=== PATIENT | male | born 1975 | race African-American/Black ===

== ENCOUNTER 2016-07-15 06:23 | Inpatient (IN) ==
[2016-07-15 07:25] LABS: Basophils % 0.4 % (0.0-0.8); Eosinophils # 0.2 10*3/uL (0.0-0.87); Eosinophils % 2.7 % (0.00-10.9); Hematocrit 43.1 VOL% (42.0-52.0); Hemoglobin 15.1 GM/DL (14.0-18.0); Immature Granulocytes % 0.2 %; Immature Granulocytes Absolute 0.02 #; Lymphocytes # 0.5 10*3/uL (1.4-4.0); Lymphocytes % 6.6 % (21.2-54.2); Mean Corpuscular Hemoglobin 33 PG (27-34); Mean Corpuscular Volume 92.7 FL (87-102); Mean Platelet Volume 8.7 FL (9.6-12.0); Monocytes # 0.8 10*3/uL (0.11-0.8); Monocytes % 10.3 % (1.7-12.7); Neutrophils # 6.4 10*3/uL (1.4-7.4); Neutrophils % 79.8 % (38.7-73.9); Platelet Count 271 T/CUMM (130-400); Red Blood Count 4.65 MC/CUMM (3.8-5.5); Red Cell Distribution Width 12.4 % (9.3-17.3); White Blood Count 8.1 T/CUMM (4-12)
--- NOTE | 2016-07-15 07:43 | General Surg History&Physical ---
Assessment and Plan - Time spent with patient Time spent with patient: Greater than 30 minutes (1) Abscess of right buttock Status: Acute Assessment and plan: Impression: 1. Marked swelling and pain right buttocks probably secondary to underlying abscess Plan: 1. IV antibiotics. 2. Surgical debridement drainage Current Visit: Yes History of Present Illness Chief complaint: painful swelling right buttocks History of present illness: Mr. Shrestha is a 40 year old male -S[place]i male with a history of some recurring abscesses both in the gluteal area and other areas. He denies being a diabetic and he is standing not overweight. He presents with about a 2 week history of swelling in the right gluteal area. He just treated it topically as needed done some other areas in the past but he got progressively worse with marked swelling the right gluteal area over the last several days. Basic got worse about Friday to the point that he came in today, he couldn't stand the pain anymore. He has dramatic swelling the right gluteal area came to we can barely even touching and will need a taken to surgery under anesthesia and get this area drained. Home Medications Medication Instructions Recorded Confirmed Type No Known Home Medications [No 07/15/16 07/15/16 History Known Home Medications] Allergies Allergy/AdvReac Type Severity Reaction Status Date / Time No Known Allergies Allergy Unverified 07/15/16 06:45 Medical,Surgical,& Family Hx - Surgical History Orthopedic Surgeries: Surgical HX of;: Orthopedic Surgery (L knee) - Social History Smoking Status: Never smoker Frequency of Alcohol Use: Occasionally Type of Drug Use: None Marital Status: Single Lives With:: Parent Functional capacity: independent ambulation Exam - Constitutional Vitals: Period Temp Pulse Resp BP Sys/Khan Pulse Ox Last 24 Hr 99.0 F-99.0 F 85-104 19-20 110-145/67-95 97-99 General appearance: mild distress - Head Head exam: Present: normal inspection - ENT ENT exam: Present: normal exam - Neck Neck exam: Present: normal inspection - Respiratory Respiratory exam: Present: clear to auscultation bilaterally, rales - Cardiovascular Cardiovascular exam: Present: RRR - GI/Abdominal GI/Abdominal exam: Present: normal bowel sounds, hypoactive bowel sounds, soft - Anus/Rectum Anus/Rectum: other (marked swelling of the right gluteal area with marked tenderness.) - Extremities Exam Extremities exam: Present: normal inspection - Back Exam Back exam: Present: normal inspection - Neurological Exam Neurological exam: Present: alert, oriented X3, CN II-XII intact - Skin Skin exam: Present: normal color, warm, dry 12 point system: reviewed and no additional remarkable complaints except as stated Results - Labs CBC & BMP: 07/15/16 07:14 Lab Results: I have reviewed the past 24 hour labs
[2016-07-15] MEDS ORDERED: ACETAMINOPHEN 325 MG TABLET PO PRN (07:46)
[2016-07-15] MEDS ORDERED: ONDANSETRON 4 MG/2 ML VIAL IV PRN ×2 (07:46→14:38)
[2016-07-15] MEDS ORDERED: ALUMINUM/MAGNES/SIMETH MAX STR 30 ML UDCUP PO PRN (07:46)
[2016-07-15 07:48] LABS: Band Neutrophils 7 % (0-10); Eosinophils 1 % (0-10); Lymphocytes 8 % (20-55); Segmented Neutrophils 77 % (50-85); Total Cells Counted 100
[2016-07-15 07:49] LABS: Platelet Estimate Adequate
[2016-07-15] MEDS ORDERED: ceFAZolin 2,000 MG in PREMIX 1 EACH IV ONE (07:51)
--- NOTE | 2016-07-15 07:51 | Emergency Department Note ---
Dc Hayden Meredith, am scribing for, and in the presence of, Amilcar Fernandes MD 06:50. Dom Hayden Phillip K, MD, personally performed the services described in this documentation, ascribed by Ning Irwin in my presence, and it is both accurate and complete 751 . Arrival - Arrival Chief Complaint: Abscess Stated Complaint: has a boil on right buttcheck ED Nursing Triage Note: pt presented to triage ambulatory with c/o abscess to R buttocks x 1 week. pt denies drainage and fever. redness and edema noted to R buttocks. pain unrelieved with OTC meds and oxycontin. Mode of Arrival: Ambulatory Limitations: No Limitations Source: Patient, Old Records Reviewed, RN Notes Reviewed - History of Present Illness HPI Narrative: Pt is a 40 y/o black male reporting to the ED with c/o abscess to the right buttock for the past week. He denies any drainage. His temperature at the time of triage was 99.0. Pt has taken OTC pain medication and Oxycotin with no relief. Onset (ago): week(s) Consistency: constant Allergies/Adverse Reactions: Allergies Allergy/AdvReac Type Severity Reaction Status Date / Time No Known Allergies Allergy Unverified 07/15/16 06:45 Home Medications: Home Medications Medication Instructions Recorded Confirmed Type No Known Home Medications [No 07/15/16 07/15/16 History Known Home Medications] Review of System - Review of System 12 point system: reviewed and no additional remarkable complaints except as stated - Review of System Constitutional: Present: as per HPI, fever Skin: Present: as per HPI, other (abscess to the right buttock; pt denies any drainage) Medical,Surgical,& Family Hx - Medical History Neurology: No history of: TIA - Surgical History Cardiac Surgeries: Patient Denies: Carotid Endarterectomy Orthopedic Surgeries: Surgical HX of;: Orthopedic Surgery (L knee) - Family History Family History: Denies;: Additional Family History - Social History Smoking Status: Never smoker Frequency of Alcohol Use: Occasionally Type of Drug Use: None Exam Vital Signs: Vital Signs Temperature 99.0 F 07/15/16 07:23 Pulse Rate 104 H 07/15/16 07:23 Respiratory Rate 20 07/15/16 07:23 Blood Pressure 145/95 07/15/16 07:23 O2 Sat by Pulse Oximetry 99 07/15/16 07:02 - General General appearance: alert, in no apparent distress - Head Head exam: Present: atraumatic, normocephalic - Eye Eye exam: Present: normal appearance, PERRL, EOMI - ENT ENT exam: Present: mucous membranes moist, normal external ear exam - Neck Neck exam: Present: full ROM, trachea midline. Absent: tenderness, meningismus , lymphadenopathy, thyromegaly - Chest Chest inspection: Present: symmetric chest wall rise. Absent: tenderness, rash - Respiratory Respiratory exam: Present: normal lung sounds bilaterally. Absent: respiratory distress - Cardiovascular Cardiovascular exam: Present: regular rate, normal rhythm, normal heart sounds. Absent: murmur, rubs, gallop - Abdominal Exam Abdominal exam: Present: soft, normal bowel sounds. Absent: distention, tenderness - Extremities Exam Extremities exam: Present: full ROM, normal capillary refill. Absent: tenderness, pedal edema, calf tenderness - Back Exam Back exam: Present: full ROM. Absent: tenderness - Neurological Exam Neurological exam: Present: alert, oriented X3, CN II-XII intact. Absent: motor sensory deficit - Psychiatric Psychiatric exam: Present: normal affect, normal mood - Skin Skin exam: Present: warm, dry, other (4cm by 5 cm abscess to the right buttock) Course Course Narrative: Patient discussed with Dr. Lyle who will evaluate in the ED. Results - Labs CBC & BMP: 07/15/16 07:14 Lab Results: I have reviewed the patients labs Disposition Clinical Impression: Abscess, gluteal, right Case discussed with: patient Disposition: Still a Patient Condition: Stable Additional Instructions: Admit to Dr. Lyle for surgery
[2016-07-15 08:00] LABS: Calcium 9.4 MG/DL (8.5-10.1); Osmolality,Calculated 281.4 MOS/KG (273-304); Potassium 3.9 MMOL/L (3.5-5.1)
--- NOTE | 2016-07-15 08:17 | EKG Report ---
Stationary ECG Study [facility] ER Test Date: 07/15/2016 8:16:17 AM Pat Name: MAXIMILIANO MAYERS Department: Room: Gender: M Senior Stack Engineer: : 1975 Requested by: Vin Lyle Order Number: [id number] Ozzie MD: TITI GRANADOS Intervals [place] Rate: 73 P: 51 VA: 108 QRS: 63 QRSD: 90 T: 77 QT: 376 QTc: 402 Interpretive Statements SINUS RHYTHM WITH SHORT VA INTERVAL Electronically Signed On 07-15-16 22:36:37 CROWNING HAMMER OPERATOR by TIIT GRANADOS [email or web address]
--- NOTE | 2016-07-15 09:21 | XRay Report ---
XR chest 2V Indication: Preop for abscess Comparison: None Technique: Frontal and lateral views of the chest Findings: Heart size appears within normal limits. No focal consolidation, pleural effusion, or pneumothorax. Osseous and surrounding soft tissue structures demonstrate no acute abnormality. IMPRESSION: No acute cardiopulmonary process demonstrated. PROCEDURE INTERPRETED AT [facility] DEPARTMENT OF RADIOLOGY Final Report Signed by: Dr Reza Rajan
[2016-07-15] MEDS: DOCUSATE SODIUM 100 MG CAPSULE PO SCH ×2 (09:30→20:38)
[2016-07-15] MEDS: PANTOPRAZOLE 40 MG TABLET PO SCH (09:30)
[2016-07-15] MEDS: DEXTROSE 5% LACTATED RINGERS 1,000 ML IV SCH ×2 (09:30→15:39)
[2016-07-15] MEDS: metroNIDAZOLE INJ 500 MG in PREMIX 1 EACH IV SCH ×2 (09:35→15:39)
[2016-07-15] MEDS: KETOROLAC 15 MG/1 ML VIAL IV SCH ×3 (09:38→22:00)
[2016-07-15] MEDS ORDERED: BUPIVACAINE 0.25% 50 ML VIAL ONE (12:24)
[2016-07-15] MEDS: PIPERACILLIN/TAZOBACTAM 3,375 MG in SODIUM CHLORIDE 0.9% 100 ML IV SCH ×2 (12:33→17:32)
[2016-07-15] MEDS ORDERED: LIDOCAINE 2% 5 ML VIAL ONE (13:10)
[2016-07-15] MEDS ORDERED: PROPOFOL 200 MG/20 ML VIAL IV ONE (13:10)
--- NOTE | 2016-07-15 14:16 | Operative Note ---
Pre-op diagnosis: abscess right buttocks Post-op diagnosis: same Procedure: Operative note: Preoperative diagnosis: Large abscess right buttocks Postoperative diagnosis same Procedure: Excisional debridement skin subcutaneous tissue and drainage of abscess. Surgeon Dr. Lyle Anesthesia Gen. Brief history: 40-year-old [place]ian male with large abscess of right buttocks inguinal for 2 weeks now is extremely large very tender at this point time so we admitted him for IV antibiotics and cultures. We'll bring him to surgery at this point for drainage. Procedure: With patient in the dorsal lithotomy position approached this area of the large abscess after Timeout and antibiotics and being completed. The mass measures 15 cm x 10 cm in size at this time. It is fluctuant and firm on this right buttocks. At that point I took a knife and made incision into the buttocks entering a large cavity large amount of purulent material which we then cultured aerobically and anaerobically. I then opened up this wound widely superiorly and inferiorly and excise several skin edges as well as good bit of necrotic fatty tissue in the base of this wound once I had opened this widely and cleaned it up and I was able to use elect cauterization controlled bleeding in the base of the wound and washed and irrigated with saline solution. When post-debridement wound is now 12 x 5 x 2 cm in size. Did not see any extension into the pro-rectal area at this point time. After I cleaned up this wound is clean as I could possibly get it because of the concern about some bleeding went ahead and place Surgicel in the base along with Aquasol AG and fluffs on top at this time. We'll start Dakin's irrigation's and dressings Karissa once we are sure there is no further bleeding. Patient was then further dressed and taken to recovery room. Estimated blood loss 50 mL Sponge count correct 2 Drains none Complications none Condition stable satisfactory Anesthesia: ROSAURA Surgeon / Physician: Vin Lyle Estimated blood loss: other (50 mL) Specimens: other (tissue and swabs for culture) Condition: stable Disposition: floor Results - Labs CBC & BMP: 07/15/16 07:14 07/15/16 07:14 Discharge Plan - Discharge Medications No Action No Known Home Medications [No Known Home Medications] - Follow Up or Referral - Forms/Instructions
[2016-07-15] MEDS ORDERED: MIDAZOLAM 2 MG/2 ML VIAL ONE (14:29)
[2016-07-15] MEDS ORDERED: fentaNYL 100 MCG/2 ML VIAL ONE (14:29)
[2016-07-15] MEDS ORDERED: HYDROmorphone 2 MG/1 ML VIAL IV PRN (14:38)
--- NOTE | 2016-07-15 14:42 | Anesthesia ---
Anesthesia Post OP - Post Ansesthetic Evaluation Patient seen in post op: Yes Resp: within normal limits CV: within normal limits Mental: within normal limits Temp: within normal limits [id number]: within normal limits Nausea and Vomiting: within normal limits Pain: within normal limits
[2016-07-15] MEDS ORDERED: LACTATED RINGERS 1,000 ML IV SCH (15:00)
[2016-07-15] MEDS: HYDROmorphone 2 MG/1 ML VIAL IV PRN (20:58)
[2016-07-15] MEDS: ceFAZolin 2,000 MG in PREMIX 1 EACH IV SCH (21:19)
[2016-07-16] MEDS: metroNIDAZOLE INJ 500 MG in PREMIX 1 EACH IV SCH ×4 (00:02→23:35)
[2016-07-16] MEDS: DEXTROSE 5% LACTATED RINGERS 1,000 ML IV SCH ×2 (00:08→03:52)
[2016-07-16] MEDS: PIPERACILLIN/TAZOBACTAM 3,375 MG in SODIUM CHLORIDE 0.9% 100 ML IV SCH ×3 (01:21→17:07)
[2016-07-16] MEDS: KETOROLAC 15 MG/1 ML VIAL IV SCH ×4 (03:49→23:31)
[2016-07-16] MEDS: ceFAZolin 2,000 MG in PREMIX 1 EACH IV SCH (06:26)
[2016-07-16] MEDS ORDERED: ceFAZolin 2,000 MG in PREMIX 1 EACH IV ONE (06:30)
[2016-07-16 07:05] LABS: Immature Granulocytes Absolute 0.03 #; Mean Corpuscular HGB Conc 32.9 GM/DL (32-36); Red Cell Distribution Width 12.5 % (9.3-17.3)
[2016-07-16 07:35] LABS: Calcium 8.2 MG/DL (8.5-10.1); Osmolality,Calculated 280.3 MOS/KG (273-304); Potassium 3.8 MMOL/L (3.5-5.1)
[2016-07-16 07:56] LABS: Basophils % 0.4 % (0.0-0.8); Eosinophils # 0.1 10*3/uL (0.0-0.87); Eosinophils % 2.7 % (0.00-10.9); Hematocrit 31.9 VOL% (42.0-52.0); Immature Granulocytes % 0.6 %; Lymphocytes % 18.3 % (21.2-54.2); Mean Corpuscular Hemoglobin 32 PG (27-34); Mean Corpuscular Volume 96.1 FL (87-102); Mean Platelet Volume 8.4 FL (9.6-12.0); Monocytes # 0.6 10*3/uL (0.11-0.8); Monocytes % 11.5 % (1.7-12.7); Neutrophils # 3.5 10*3/uL (1.4-7.4); Neutrophils % 66.5 % (38.7-73.9)
[2016-07-16 07:57] LABS: Red Blood Count 3.32 MC/CUMM (3.8-5.5); White Blood Count 5.2 T/CUMM (4-12)
[2016-07-16 07:58] LABS: Hemoglobin 10.5 GM/DL (14.0-18.0); Platelet Count 197 T/CUMM (130-400)
[2016-07-16] MEDS: PANTOPRAZOLE 40 MG TABLET PO SCH (09:35)
[2016-07-16] MEDS: DOCUSATE SODIUM 100 MG CAPSULE PO SCH ×2 (09:35→23:31)
[2016-07-16] MEDS: SODIUM HYPOCHLORITE 0.25% IRRIG 473 ML BOTTLE TOP SCH ×2 (11:15→23:38)
--- NOTE | 2016-07-16 17:37 | General Surgery Progress Note ---
Assessment and Plan - Time spent with patient Time spent with patient: Less than 30 minutes (1) Abscess of right buttock Status: Acute Assessment and plan: Impression: 1. Marked swelling and pain right buttocks probably secondary to underlying abscess Plan: 1. IV antibiotics. 2. Surgical debridement drainage 07/16/2016. Patient is status post drainage of this abscess of the right gluteal area. We' ll now start wound care to it and trying to teach the patient family how to care for. We're waiting for the final on the culture reports to decide what antibiotics to send him home on. Once he is able to manage the wounds and we' ll get clear cultures will let him go home and follow him up in the office. Current Visit: Yes Subjective Patient reports: Present: feels better, pain is less, tolerating a regular diet , no bowel movement, afebrile Exam - Constitutional Vitals: Period Temp Pulse Resp BP Sys/Khan Pulse Ox Last 24 Hr 98.2 F-99.0 F 73-101 12-20 100-121/63-76 91-98 General appearance: mild distress - Head Head exam: Present: normal inspection - ENT ENT exam: Present: normal exam - Neck Neck exam: Present: normal inspection - Respiratory Respiratory exam: Present: clear to auscultation bilaterally, rales - Cardiovascular Cardiovascular exam: Present: RRR - GI/Abdominal GI/Abdominal exam: Present: hypoactive bowel sounds, soft - Anus/Rectum Anus/Rectum: other (wound is dressed and will start wound care today) - Extremities Exam Extremities exam: Present: normal inspection - Back Exam Back exam: Present: normal inspection - Neurological Exam Neurological exam: Present: alert, oriented X3, CN II-XII intact - Skin Skin exam: Present: normal color, warm, dry Results - Labs CBC & BMP: 07/16/16 07:48 07/16/16 06:37 Lab Results: I have reviewed the past 24 hour labs Quality Measures - VTE Contraindication to Pharmacological VTE Prophylaxis: High Risk of Bleeding
[2016-07-16] MEDS: HYDROmorphone 2 MG/1 ML VIAL IV PRN (23:43)
[2016-07-17] MEDS: PIPERACILLIN/TAZOBACTAM 3,375 MG in SODIUM CHLORIDE 0.9% 100 ML IV SCH ×3 (00:52→18:19)
[2016-07-17] MEDS: DEXTROSE 5% LACTATED RINGERS 1,000 ML IV SCH ×4 (00:54→16:43)
[2016-07-17] MEDS: KETOROLAC 15 MG/1 ML VIAL IV SCH ×4 (04:15→21:14)
[2016-07-17] MEDS: metroNIDAZOLE INJ 500 MG in PREMIX 1 EACH IV SCH ×2 (10:07→16:15)
[2016-07-17] MEDS: PANTOPRAZOLE 40 MG TABLET PO SCH (10:08)
[2016-07-17] MEDS: DOCUSATE SODIUM 100 MG CAPSULE PO SCH ×2 (10:08→21:12)
--- NOTE | 2016-07-17 10:08 | General Surgery Progress Note ---
Assessment and Plan - Time spent with patient Time spent with patient: Less than 30 minutes (1) Abscess, gluteal, right Status: Acute Assessment and plan: 07/17/16 Stable post op I&D of perineal/gluteal abscess. Final culture pending. He's tolerating dressing changes and family is attentive/capable of managing these. We will look at discharge tomorrow if final culture can be addressed. I' d like to see him having bowel movements prior to discharge, since that will add to his discomfort and management difficulty. Current Visit: Yes Subjective Patient reports: Present: feels better, pain is less, other (Mild headache today ; Tolerating dressing changes well; pt says his fiance & grandmother have been managing his dressings and he's tolerating that well.). Absent: bowel movement , nausea, vomiting, shortness of breath Exam - Constitutional Vitals: Period Temp Pulse Resp BP Sys/Khan Pulse Ox Last 24 Hr 98.2 F-99.0 F 74-79 12-18 104-125/54-74 96-99 General appearance: no acute distress - Respiratory Respiratory exam: Present: clear to auscultation bilaterally - Cardiovascular Cardiovascular exam: Present: RRR - GI/Abdominal GI/Abdominal exam: Present: hypoactive bowel sounds, soft - Anus/Rectum Anus/Rectum: other (Perineal dressing in place; no bleeding through. ) Results - Labs CBC & BMP: 07/16/16 07:48 07/16/16 06:37 Lab Results: I have reviewed the past 24 hour labs Quality Measures - VTE Contraindication to Pharmacological VTE Prophylaxis: High Risk of Bleeding
[2016-07-17] MEDS: SODIUM HYPOCHLORITE 0.25% IRRIG 473 ML BOTTLE TOP SCH ×2 (16:30→21:15)
[2016-07-18] MEDS: metroNIDAZOLE INJ 500 MG in PREMIX 1 EACH IV SCH ×2 (00:32→09:17)
[2016-07-18] MEDS: PIPERACILLIN/TAZOBACTAM 3,375 MG in SODIUM CHLORIDE 0.9% 100 ML IV SCH ×2 (01:55→10:26)
[2016-07-18] MEDS: DEXTROSE 5% LACTATED RINGERS 1,000 ML IV SCH (02:07)
[2016-07-18] MEDS: KETOROLAC 15 MG/1 ML VIAL IV SCH ×2 (04:52→09:32)
[2016-07-18] MEDS: DOCUSATE SODIUM 100 MG CAPSULE PO SCH (09:18)
[2016-07-18] MEDS: PANTOPRAZOLE 40 MG TABLET PO SCH (09:18)
[2016-07-18] MEDS: SODIUM HYPOCHLORITE 0.25% IRRIG 473 ML BOTTLE TOP SCH (09:22)
--- NOTE | 2016-07-18 10:21 | Physician Query Form ---
CLICK EDIT DOCUMENT TO SELECT QUERY ANSWER --> OK --> SIGN Holly Sharma RN Clinical Editor Managing Newspaper W) [phone] (f) [phone] [email or web address] PROVIDERS: Make your selection(s) from the choices in EACH section by typing an "x" and enter comments in the comment section. Please use your independent medical judgment in providing your response. This request does not imply that any particular answer is desired or expected. CLINICAL INDICATORS: (Providers should not edit this section) Height: 5ft 8in Weight: 127lbs Manufacturing Applications Engineer BMI: 18.9 Nutritional supplements: Ensure Enlive with all meals Fund Manager notes: underweight Based on the above, which following choice most accurately represents the patient's nutritional status? ( ) Malnutrition ( ) mild ( ) moderate ( ) severe ( x) Protein calorie malnutrition ( x) mild ( ) moderate ( ) severe ( ) Emaciation due to malnutrition ( ) Nutritional marasmus ( ) Cachexia (x ) Underweight ( ) No nutritional deficiency ( ) Other, please specify: ( ) Clinically unable to determine Mild Malnutrition (BMI < 18.5, % Normal Body Weight 85-95%) Moderate Malnutrition (BMI < 17, % Normal Body Weight 75-85%) Severe Malnutrition (BMI < 16, % Normal Body Weight < 75%) Source: Ana COMMENTS: Use of terms such as suspected, likely, or probable (associated with a specific diagnosis that is being evaluated, monitored, or treated as if it exists) are acceptable and can be restated in the discharge summary if not ruled out. MTDD
[2016-07-18 12:00] VITALS: BP 105/64
--- NOTE | 2016-07-18 12:31 | Discharge Summary ---
Hospital Course - Hospital Course Hospital Course: 07/18/16 Discharge Summary Diagnosis: Abscess of right buttocks and gluteal fold Procedure: I&D with wide excisional debridement of right buttocks and gluteal region Brief summary-This 40 year old male patient presented to the ER on the day of admission with a 1 week history of a 'boil on his butt,' with swelling and pain of the right buttock. He had been using moist heat and OTC pain relievers for this, with no relief. The area became too uncomfortable to tolerate, and he presented to the ER. He had noted previous abscesses in other areas, and at least one occasion, he had an buttocks abscess that spontaneously drained. He was admitted, IV antibiotics begun, and on 07/15/16 he was taken to the OR, where a large fluctuant mass of the right buttock was opened and drained. The area undermined about 10cm toward the gluteal fold, and there was a good deal of fatty subcutaneous tissue involved, which was excisionally debrided at the time of surgery. The tissue was cultured and wound care begun. Postoperatively, he has tolerated his wound care well, his family has participated in his care, and his diet has advanced to regular, with normal bowel movements as of yesterday. His pain is managed now by PO meds. The wound bed is pink and induration is resolving. There is no further purulence, no erythema, and he is much more comfortable. Final cultures have showed E. coli and S. lugdunensis, both with good PO antibiotic coverage options. With him feeling better and managing his wound care with the assistance of the family, we will plan to discharge home for continuation of antibiotics for another week. We'll have them maintain BID wound care, and return in 1-2 weeks to the office for recheck. They were given instructions for possible complications and will call if there are questions or issues. We'll just plan to discharge home on Bactrim DS, 1 tablet po BID, and Colace, 100mg po at HS. We will give him [place], 7.5/ 325mg; #20/no refills. - Time spent with patient Time with patient DS: Greater than 30 minutes Diagnosis - Discharge Diagnosis (1) Abscess, gluteal, right Status: Acute Specialty Discharge - Follow Up or Referrals Follow up with: Vin Lyle MD [Physician] - 2 Weeks (See Dr Lyle or Trudy in 2 weeks) Discharge Plan - Discharge Data Disposition: Disch To Home/Self Care Condition at Discharge: Stable Discharge Diet: advance to your usual diet Activity: resume usual activities as tolerated Hygiene: may shower Weight Bearing at Discharge: full weight bearing Driving: not for (1 week) Contact your physician if you experience:: fever over 101, Difficulty voiding, Redness or swelling, Nausea/Vomiting, Shortness of breath, Bleeding, pain uncontrolled by pain medications Wound / Dressing Care Instructions: Copy/continue present wound care instructions - Discharge Medications New RX: Docusate Sodium Cap [Colace Cap] 100 mg PO BEDTIME #30 capsule RX: Sodium Hypochlorite 0.25% Irr [Dakins 1/2 Strength 0.25% Soln] 20 applic TOP BID #1 irrigation HYDROcodone/ACETAMIN 7.5-325 [[place] 7.5-325] 1 tablet PO Q6H #20 tablet Sulfameth/Trimeth 800-160 Tab [Bactrim DS Tab] 1 tablet PO BID #14 tablet - Follow Up or Referral - Forms/Instructions Additional Discharge Instructions: Work excuses for pt and fiance, if desired, for hospital stay and office visits Exam - Constitutional Vitals: Period Temp Pulse Resp BP Sys/Khan Pulse Ox Last 24 Hr 98.2 F-98.5 F 60-78 17-19 104-126/62-64 98-100 General appearance: no acute distress, under weight - Cardiovascular Cardiovascular exam: Present: regular rate and rhythm - GI/Abdominal GI/Abdominal exam: Present: normal bowel sounds, soft. Absent: tenderness - Back Exam Back exam: Present: other (Buttocks/gluteal region is clean without erythema or purulent drainage; there is mild resolving induration associated with the surgical incision but no unusual tenderness, no fluctuance or mass. ) - Neurological Exam Neurological exam: Present: alert, oriented X3 - Psychiatric Psychiatric exam: Present: normal affect, normal mood Discharge Results Procedures and tests throughout hospitalization: Pending Orders 07/15/16 13:38 Abscess Culture Stat Anaerobic Culture Stat Labs on day of discharge: Preliminary micro results at discharge 07/15/16 13:38 Anaerobic Culture - Preliminary Buttock - Right DS: Provider Date of admission: 07/15/16 07:46 Primary care physician: . No PCP Attending physician on admission: Vin Lyle MD Consults: 07/15/16 07:52 Consult to Anesthesiology [CONS] Routine Consulting Provider: Reason for Anesthesiology: Pre-op Clearance Consult Comment: needs genral 07/15/16 09:10 Consult to Pharmacy [CONS] Routine Reason for Pharmacy Consult: Adjust Meds Renal Funct 07/15/16 14:05 Consult to Wound Care - [place] [CONS] Routine Reason for Wound Care: Wound Care Management 07/15/16 14:09 Consult to Case Mgmt/Social Srvs [CONS] Routine Reason for Case Mgmt/Social Srvs: Discharge Planning Consult Comment: see if family wants Home Health Discharging clinician: Trudy Gu CNP, R
== END 2016-07-18 15:10 | disposition home or self-care (01) | DRG 571 ==
LOC: N.ED 06:23 → N.EDINP 07:46 → N.3E 08:37
PROVIDERS: ADMIT Specialist; ATTEND Specialist

== ENCOUNTER 2019-08-22 09:31 | Observation (INO) ==
[2019-08-22] MEDS ORDERED: KETOROLAC 30 MG/1 ML VIAL IV STA (10:11)
[2019-08-22] MEDS ORDERED: VANCOMYCIN INJ 1,000 MG in SODIUM CHLORIDE 0.9% 250 ML IV STA (10:12)
[2019-08-22] MEDS ORDERED: VANCOMYCIN 1,000 MG VIAL ONE ×2 (10:44→13:45)
[2019-08-22 10:50] LABS: Basophils % 0.4 % (0.0-0.8); Eosinophils # 0.1 10*3/uL (0.0-0.87); Eosinophils % 0.7 % (0.00-10.9); Hematocrit 44.9 VOL% (42.0-52.0); Hemoglobin 15.4 GM/DL (14.0-18.0); Immature Granulocytes % 0.5 %; Immature Granulocytes Absolute 0.04 #; Lymphocytes # 0.7 10*3/uL (1.4-4.0); Lymphocytes % 8.6 % (21.2-54.2); Mean Corpuscular HGB Conc 34.3 GM/DL (32-36); Mean Corpuscular Volume 97.4 FL (87-102); Mean Platelet Volume 8.5 FL (9.6-12.0); Monocytes % 7.8 % (1.7-12.7); Platelet Count 184 T/CUMM (130-400); Red Blood Count 4.61 MC/CUMM (3.8-5.5); Red Cell Distribution Width 12.1 % (9.3-17.3); White Blood Count 8.5 T/CUMM (4-12)
[2019-08-22 11:02] LABS: INR 0.9; PT Patient Result 9.8 SECS (9.6-12.2); Partial Thromboplastin Time 26.1 SECS (20.8-36.0)
[2019-08-22 11:16] LABS: Albumin 3.8 G/DL (3.4-5.0); Bilirubin,Total 0.7 MG/DL (0.2-1.0); Calcium 8.9 MG/DL (8.5-10.1); Total Protein 7.6 G/DL (6.4-8.3)
[2019-08-22] MEDS ORDERED: DOCUSATE SODIUM 100 MG CAPSULE PO PRN (14:03)
[2019-08-22] MEDS ORDERED: ONDANSETRON 4 MG/2 ML VIAL IV PRN (14:03)
[2019-08-22] MEDS ORDERED: MORPHINE 4 MG/1 ML VIAL IV PRN (14:03)
[2019-08-22] MEDS ORDERED: LACTULOSE 20 GM/30 ML UDCUP PO PRN (14:03)
[2019-08-22] MEDS ORDERED: fentaNYL 100 MCG/2 ML VIAL ONE (14:35)
[2019-08-22] MEDS ORDERED: SEVOFLURANE 1 UNIT/15 MINUTE INH ONE (14:35)
[2019-08-22] MEDS ORDERED: propofoL 200 MG/20 ML VIAL IV ONE (14:35)
[2019-08-22] MEDS ORDERED: LIDOCAINE 2% 5 ML VIAL ONE (14:35)
[2019-08-22] MEDS ORDERED: LACTATED RINGERS 1,000 ML IV ONE (14:35)
[2019-08-22] MEDS ORDERED: DEXAMETHASONE 4 MG/1 ML VIAL ONE (14:35)
[2019-08-22] MEDS ORDERED: MIDAZOLAM 2 MG/2 ML VIAL ONE (14:35)
[2019-08-22] MEDS ORDERED: KETOROLAC 30 MG/1 ML VIAL ONE (14:35)
[2019-08-22] MEDS ORDERED: ONDANSETRON 4 MG/2 ML VIAL ONE (14:35)
[2019-08-22] MEDS: SODIUM CHLORIDE 0.9% 1,000 ML IV SCH (15:19)
[2019-08-22] MEDS: VANCOMYCIN INJ 1,000 MG in SODIUM CHLORIDE 0.9% 250 ML IV SCH (21:10)
[2019-08-23] MEDS: SODIUM CHLORIDE 0.9% 1,000 ML IV SCH ×3 (01:39→18:12)
[2019-08-23 05:58] LABS: Basophils % 0.2 % (0.0-0.8); Eosinophils % 0.1 % (0.00-10.9); Hematocrit 37.6 VOL% (42.0-52.0); Hemoglobin 12.5 GM/DL (14.0-18.0); Immature Granulocytes % 0.5 %; Immature Granulocytes Absolute 0.05 #; Lymphocytes # 0.6 10*3/uL (1.4-4.0); Lymphocytes % 6.2 % (21.2-54.2); Mean Corpuscular HGB Conc 33.2 GM/DL (32-36); Monocytes % 7.7 % (1.7-12.7); Neutrophils % 85.3 % (38.7-73.9); Platelet Count 196 T/CUMM (130-400); Red Blood Count 3.76 MC/CUMM (3.8-5.5); Red Cell Distribution Width 11.9 % (9.3-17.3)
[2019-08-23 06:25] LABS: Albumin 2.9 G/DL (3.4-5.0); Bilirubin,Total 0.6 MG/DL (0.2-1.0); Calcium 8.7 MG/DL (8.5-10.1); Osmolality,Calculated 271.8 MOS/KG (273-304); Risk Ratio 1.94; Thyroid Stimulating Hormone 0.258 uIU/ml (0.358-3.74); Total Protein 6.5 G/DL (6.4-8.3); VLDL CHOLESTEROL 14.4 MG/DL
[2019-08-23] MEDS ORDERED: PANTOPRAZOLE 40 MG TABLET PO SCH (09:00)
[2019-08-23] MEDS: VANCOMYCIN INJ 1,000 MG in SODIUM CHLORIDE 0.9% 250 ML IV SCH (09:25)
[2019-08-23] MEDS: cefTRIAXone 1,000 MG in SYRINGE 1 EACH IV SCH (12:33)
[2019-08-24] MEDS: SODIUM CHLORIDE 0.9% 1,000 ML IV SCH ×2 (02:45→17:44)
[2019-08-24 06:01] LABS: Basophils % 0.4 % (0.0-0.8); Eosinophils % 0.8 % (0.00-10.9); Hematocrit 37.6 VOL% (42.0-52.0); Hemoglobin 12.3 GM/DL (14.0-18.0); Immature Granulocytes % 0.4 %; Immature Granulocytes Absolute 0.02 #; Lymphocytes # 1.4 10*3/uL (1.4-4.0); Lymphocytes % 28.6 % (21.2-54.2); Mean Corpuscular HGB Conc 32.7 GM/DL (32-36); Mean Corpuscular Volume 101.6 FL (87-102); Mean Platelet Volume 9.3 FL (9.6-12.0); Monocytes % 6.6 % (1.7-12.7); Neutrophils % 63.2 % (38.7-73.9); Platelet Count 178 T/CUMM (130-400); Red Cell Distribution Width 12.2 % (9.3-17.3); White Blood Count 4.9 T/CUMM (4-12)
[2019-08-24 06:19] LABS: Albumin 2.7 G/DL (3.4-5.0); Bilirubin,Total 0.5 MG/DL (0.2-1.0); Calcium 8.6 MG/DL (8.5-10.1); Osmolality,Calculated 272.7 MOS/KG (273-304); Total Protein 5.9 G/DL (6.4-8.3)
[2019-08-24] MEDS: cefTRIAXone 1,000 MG in SYRINGE 1 EACH IV SCH (08:37)
[2019-08-24 15:31] VITALS: BP 136/89
== END 2019-08-24 17:43 | disposition home or self-care (01) ==
LOC: N.EDINP 09:31 → N.ED 09:31 → N.EDINP 13:50 → SUATTDRO 14:03 → N.2E 15:09
PROVIDERS: ADMIT Internal Medicine Nephrology; ATTEND Internal Medicine